=== PATIENT | male | born 1980 | race African-American/Black ===

== ENCOUNTER 2017-04-07 17:54 | Emergency (ER) | payer MEDICAID, OTHER ==
[~2017-04-07] VITALS: Ht 180.3 cm; Wt 81.8 kg
[2017-04-07 17:55] VITALS: BP 99/78
[2017-04-07] MEDS ORDERED: PRED10TA2 PO (18:45)
[2017-04-07] MEDS ORDERED: predniSONE 20 MG TAB PO ONE (18:45)
[2017-04-07] MEDS ORDERED: ONDANSETRON 4 MG ORAL DISINTEGRATING TAB (S0181) PO ONE (18:45)
[2017-04-07] MEDS ORDERED: ZOFR4TAB3 PO (18:45)
== END 2017-04-07 18:52 | disposition home or self-care (01) ==
LOC: M ED 17:54
DX: R10.84 Generalized abdominal pain (principal); R11.0 Nausea; R19.7 Diarrhea, unspecified; E86.0 Dehydration; K50.00 Crohn's disease of small intestine without complications

== ENCOUNTER → 2017-04-25 | Outpatient (REF) | payer OTHER ==
[~2017-04-25] MED LIST: PRED10TA2 PO; ZOFR4TAB3 PO
[2017-04-25 13:36] LABS: BASO % 0.6 % (0.0-1.0); EOS # 0.2 K/mm3 (0.0-0.50); EOS % 3.6 % (0.0-3.0); LARGE UNSTAINED CELL # 0.1 K/mm3 (0.0-0.4); LARGE UNSTAINED CELL % 2.3 % (0.0-4.0); LYMPH # 0.8 K/mm3 (1.5-4.5); MEAN CORPUSCULAR HEMOGLOBIN 31.4 pg (27.0-33.0); MEAN CORPUSCULAR HGB CONC 35.1 g/dl (32.0-36.5); MEAN CORPUSCULAR VOLUME 89.4 fl (80.0-96.0); MONO # 0.4 K/mm3 (0.0-0.8); MONO % 7.5 % (0.0-5.0); NEUTROPHILS # 4.2 K/mm3 (1.8-7.7); PLATELET COUNT, AUTOMATED 228 k/mm3 (150-450); RED CELL DISTRIBUTION WIDTH 12.8 % (11.5-14.5); WHITE BLOOD COUNT 5.6 K/mm3 (4.0-10.0)
[2017-04-25 14:17] LABS: ALBUMIN 3.7 GM/DL (3.2-5.2); ALKALINE PHOSPHATASE 77 U/L (45-117); ALT/SGPT 20 U/L (12-78); ANION GAP 9 MEQ/L (8-16); AST/SGOT 15 U/L (15-37); BILIRUBIN,TOTAL 1.8 MG/DL (0.2-1.0); BLOOD UREA NITROGEN 20 MG/DL (7-18); CALCIUM LEVEL 9.3 MG/DL (8.5-10.1); CARBON DIOXIDE LEVEL 25 MEQ/L (21-32); CHLORIDE LEVEL 108 MEQ/L (98-107); CREATININE FOR GFR 1.22 MG/DL (0.70-1.30); GLOMERULAR FILTRATION RATE > 60.0 (>60); GLUCOSE, FASTING 74 MG/DL (70-105); POTASSIUM SERUM 3.8 MEQ/L (3.5-5.1); SODIUM LEVEL 142 MEQ/L (136-145); TOTAL PROTEIN 7.4 GM/DL (6.4-8.2)
== END ==
LOC: M SFHCPLAZ 11:01
PROVIDERS: ATTEND Nurse Practitioner Family
DX: K50.90 Crohn's disease, unspecified, without complications (principal)

== ENCOUNTER 2017-12-23 02:05 | Emergency (ER) | payer OTHER ==
[2017-12-23 03:00] LABS: BASO % 0.4 % (0.0-1.0); EOS # 0.1 10^3/uL (0.0-0.50); EOS % 2.9 % (0.0-3.0); HEMATOCRIT 39.9 % (42.0-52.0); HEMOGLOBIN 13.9 g/dl (13.5-17.5); IMMATURE GRANULOCYTE % 0.2 % (0-3.0); LYMPH # 0.5 10^3/uL (1.5-4.5); LYMPH % 11.4 % (24.0-44.0); MEAN CORPUSCULAR HEMOGLOBIN 31.2 pg (27.0-33.0); MEAN CORPUSCULAR HGB CONC 34.8 g/dl (32.0-36.5); MEAN CORPUSCULAR VOLUME 89.5 fl (80.0-96.0); MONO # 0.5 10^3/uL (0.0-0.8); MONO % 11.7 % (0.0-5.0); NEUTROPHILS # 3.3 10^3/uL (1.8-7.7); NEUTROPHILS % 73.4 % (36.0-66.0); PLATELET COUNT, AUTOMATED 247 10^3/uL (150-450); RED BLOOD COUNT 4.46 10^6/uL (4.30-6.10); RED CELL DISTRIBUTION WIDTH 12.6 % (11.5-14.5); WHITE BLOOD COUNT 4.5 10^3/uL (4.0-10.0)
[2017-12-23] MEDS: NS 1,000 ML IV (03:03)
[2017-12-23] MEDS: ONDANSETRON 4MG/2ML VIAL (J2405) IV (03:03)
[2017-12-23] MEDS: methylPREDNISolone INJ 125 MG/2 ML VIAL (J2930) IV (03:04)
[2017-12-23] MEDS: MORPHINE 4 MG/ML 1ML VIAL/SYRINGE (J2270) IV (03:04)
[2017-12-23 03:31] LABS: ALBUMIN 3.5 GM/DL (3.2-5.2); ALBUMIN/GLOBULIN RATIO 0.95 (1.00-1.93); ALKALINE PHOSPHATASE 94 U/L (45-117); ALT/SGPT 23 U/L (12-78); ANION GAP 6 MEQ/L (8-16); AST/SGOT 18 U/L (7-37); BILIRUBIN,DIRECT 0.3 MG/DL (0.0-0.2); BLOOD UREA NITROGEN 21 MG/DL (7-18); CALCIUM LEVEL 8.4 MG/DL (8.5-10.1); CARBON DIOXIDE LEVEL 27 MEQ/L (21-32); CHLORIDE LEVEL 108 MEQ/L (98-107); CREATININE FOR GFR 1.07 MG/DL (0.70-1.30); GLOMERULAR FILTRATION RATE > 60.0 (>60); GLUCOSE, FASTING 94 MG/DL (70-100); LIPASE 161 U/L (73-393); POTASSIUM SERUM 3.7 MEQ/L (3.5-5.1); SODIUM LEVEL 141 MEQ/L (136-145); TOTAL PROTEIN 7.2 GM/DL (6.4-8.2)
== END 2017-12-23 04:06 | disposition home or self-care (01) ==
LOC: M ED 02:05
DX: K50.00 Crohn's disease of small intestine without complications (principal)
CPT/HCPCS: J2270

== ENCOUNTER 2018-06-11 21:12 | Emergency (ER) | payer OTHER ==
[2018-06-11 22:37] LABS: INFLUENZA A AMPLIFICATION NEGATIVE (NEGATIVE); INFLUENZA B AMPLIFICATION NEGATIVE (NEGATIVE)
[2018-06-11] MEDS: ACETAMINOPHEN 325 MG TAB PO (22:46)
[2018-06-11] MEDS: IBUPROFEN 800 MG TAB PO (22:46)
== END 2018-06-12 00:05 | disposition home or self-care (01) ==
LOC: M ED 06-12 00:05
DX: J06.9 Acute upper respiratory infection, unspecified (principal); K50.90 Crohn's disease, unspecified, without complications; Z79.899 Other long term (current) drug therapy
CPT/HCPCS: 71046

== ENCOUNTER → 2018-07-09 | Outpatient (CLI) | payer OTHER ==
[2018-07-09 17:24] LABS: ALBUMIN 4.2 GM/DL (3.2-5.2); ALBUMIN/GLOBULIN RATIO 1.05 (1.00-1.93); ALKALINE PHOSPHATASE 104 U/L (45-117); ALT/SGPT 27 U/L (12-78); ANION GAP 9 MEQ/L (8-16); AST/SGOT 25 U/L (7-37); BILIRUBIN,TOTAL 2.1 MG/DL (0.2-1.0); BLOOD UREA NITROGEN 24 MG/DL (7-18); CALCIUM LEVEL 9.3 MG/DL (8.5-10.1); CARBON DIOXIDE LEVEL 27 MEQ/L (21-32); CHLORIDE LEVEL 101 MEQ/L (98-107); CREATININE FOR GFR 1.09 MG/DL (0.70-1.30); FREE T4 1.26 NG/DL (0.76-1.46); GLOMERULAR FILTRATION RATE > 60.0 (>60); GLUCOSE, FASTING 78 MG/DL (70-100); POTASSIUM SERUM 4.2 MEQ/L (3.5-5.1); SODIUM LEVEL 137 MEQ/L (136-145); THYROID STIMULATING HORMONE 0.817 uIU/ML (0.358-3.740); TOTAL PROTEIN 8.2 GM/DL (6.4-8.2)
[2018-07-09 17:44] LABS: BASO % 0.4 % (0.0-1.0); EOS # 0.2 10^3/uL (0.0-0.50); EOS % 3.2 % (0.0-3.0); HEMATOCRIT 47.8 % (42.0-52.0); HEMOGLOBIN 16.5 g/dl (13.5-17.5); IMMATURE GRANULOCYTE % 0.6 % (0-3.0); LYMPH # 0.7 10^3/uL (1.5-4.5); LYMPH % 14.6 % (24.0-44.0); MEAN CORPUSCULAR HEMOGLOBIN 31.1 pg (27.0-33.0); MEAN CORPUSCULAR HGB CONC 34.5 g/dl (32.0-36.5); MONO # 0.6 10^3/uL (0.0-0.8); MONO % 12.7 % (0.0-5.0); NEUTROPHILS # 3.2 10^3/uL (1.8-7.7); NEUTROPHILS % 68.5 % (36.0-66.0); PLATELET COUNT, AUTOMATED 245 10^3/uL (150-450); RED BLOOD COUNT 5.31 10^6/uL (4.30-6.10); RED CELL DISTRIBUTION WIDTH 13.1 % (11.5-14.5); WHITE BLOOD COUNT 4.7 10^3/uL (4.0-10.0)
== END ==
LOC: M WUC 13:11
DX: A09 Infectious gastroenteritis and colitis, unspecified (principal)
CPT/HCPCS: 84443

== ENCOUNTER 2019-03-23 21:58 | Emergency (ER) | payer OTHER ==
[~2019-03-23] VITALS: Ht 180.3 cm; Wt 82.7 kg
[~2019-03-23 21:58] MED LIST changes: +MERC50TA2 PO; +PRED20TA PO; +ZOFR4TAB14 PO; -ZOFR4TAB3 PO
[2019-03-23 22:59] LABS: BASO % 0.5 % (0.0-1.0); EOS # 0.4 10^3/uL (0.0-0.50); EOS % 6.4 % (0.0-3.0); HEMATOCRIT 40.5 % (42.0-52.0); LYMPH # 0.8 10^3/uL (1.5-4.5); LYMPH % 13.1 % (24.0-44.0); MEAN CORPUSCULAR HEMOGLOBIN 30.8 pg (27.0-33.0); MEAN CORPUSCULAR HGB CONC 34.6 g/dl (32.0-36.5); MONO # 0.7 10^3/uL (0.0-0.8); MONO % 10.7 % (0.0-5.0); NEUTROPHILS # 4.3 10^3/uL (1.8-7.7); PLATELET COUNT, AUTOMATED 292 10^3/uL (150-450); RED BLOOD COUNT 4.55 10^6/uL (4.30-6.10); WHITE BLOOD COUNT 6.3 10^3/uL (4.0-10.0)
[2019-03-23 23:43] LABS: ALBUMIN 3.8 GM/DL (3.2-5.2); ALT/SGPT 19 U/L (12-78); BILIRUBIN,DIRECT 0.3 MG/DL (0.0-0.2); BILIRUBIN,TOTAL 1.3 MG/DL (0.2-1.0); BLOOD UREA NITROGEN 24 MG/DL (7-18); CALCIUM LEVEL 9.6 MG/DL (8.5-10.1); CARBON DIOXIDE LEVEL 26 MEQ/L (21-32); CHLORIDE LEVEL 108 MEQ/L (98-107); GLOMERULAR FILTRATION RATE > 60.0 (>60); GLUCOSE, FASTING 86 MG/DL (70-100); LIPASE 141 U/L (73-393); POTASSIUM SERUM 3.9 MEQ/L (3.5-5.1); SODIUM LEVEL 142 MEQ/L (136-145); TOTAL PROTEIN 7.1 GM/DL (6.4-8.2)
[2019-03-24] MEDS ORDERED: NS 1,000 ML IV ONE (00:45)
[2019-03-24] MEDS ORDERED: ONDANSETRON 4MG/2ML VIAL (J2405) IV ONE (00:45)
[2019-03-24] MEDS ORDERED: KETOROLAC 30 MG/ML VIAL (J1885) IV ONE (00:45)
[2019-03-24] MEDS ORDERED: ISOVUE-370 76% 100ML VIAL (Q9967) As Ordered ONE (00:45)
[2019-03-24 01:21] LABS: C REACTIVE PROTEIN QUANTITATIV 2.77 MG/DL (0.00-0.30); ERYTHROCYTE SEDIMENTATION RATE 30 mm/hr (0-15)
[2019-03-24] MEDS ORDERED: methylPREDNISolone INJ 125 MG/2 ML VIAL (J2930) IV ONE (01:45)
--- NOTE | 2019-03-24 03:07 | REPVR ---
EXAM: CT Abdomen and Pelvis With Contrast EXAM DATE/TIME: 03/24/2019 1:38 AM CLINICAL HISTORY: 39 years old, male; Pain and condition or disease; Intestinal condition; Crohn's disease; Abdominal pain; Localized; Lower; Additional info: Lower abd pain/hx crohns TECHNIQUE: Imaging protocol: Axial computed tomography images of the abdomen and pelvis with intravenous contrast. Coronal and sagittal reformatted images were created and reviewed. Radiation optimization: All CT scans at this facility use at least one of these dose optimization techniques: automated exposure control; mA and/or kV adjustment per patient size (includes targeted exams where dose is matched to clinical indication); or iterative reconstruction. Contrast material: ISOVUE 370;Contrast volume: 100 ml;Contrast route: IV; COMPARISON: No relevant prior studies available. FINDINGS: Liver: Normal. No mass. Gallbladder and bile ducts: No calcified stones. No ductal dilation. Pancreas: Normal. No ductal dilation. Spleen: Normal. No splenomegaly. Adrenals: Normal. No mass. Kidneys and ureters: Sub-5 mm hypodensities in each kidney, too small to accurately characterize. No hydronephrosis. Stomach and bowel: Thickening of the machado of the distal ileum, the cecum, and the proximal to mid ascending colon, with mild adjacent fat stranding and hyperemic mesentery. No obstruction. No pneumatosis. Appendix: No evidence of appendicitis. Intraperitoneal space: Trace free fluid in the pelvis. No pneumoperitoneum. Vasculature: No abdominal aortic aneurysm. Lymph nodes: No enlarged lymph nodes. Bladder: Unremarkable. Reproductive: Unremarkable. Bones/joints: No acute fracture. No dislocation. Soft tissues: Unremarkable. IMPRESSION: 1. Findings consistent with ileocolitis, with pattern characteristic of Crohn's disease. 2. Nonacute/incidental findings above. COMMENT: Consistent with the [employer]'s Incidental Findings Committee Report (J Am Ashleigh Radiol 2010): Unless the patient's specific circumstances suggest otherwise, any liver lesion 0.5 cm or less, any cystic kidney lesion less than 1.0 cm, and/or any adrenal lesion 1.0 cm or less not otherwise characterized in this report as possessing suspicious or indeterminate imaging features is/are highly likely to be benign and do not require follow-up imaging or biopsy. Electronically signed by: Sánchez Nielson On 03/24/2019 03:07:09 AM
[2019-03-24] MEDS ORDERED: dexameTHASONE 20 MG/5 ML VIAL (J1100) IV ONE (04:00)
[2019-03-24 04:08] VITALS: BP 115/61
[2019-03-24] MEDS ORDERED: ZOFR8TAB24 PO (17:20)
[2019-03-24] MEDS ORDERED: BUDE3CAP PO (17:20)
== END 2019-03-24 04:09 | disposition home or self-care (01) ==
LOC: M ED 21:58
DX: K50.918 Crohn's disease, unspecified, with other complication (principal)
CPT/HCPCS: 74177; 80048; 80076; 83690; 85025; 85652; 86140; 96374; 96375; 99284; J1100; J1885; J2405; J2930; Q9967

== ENCOUNTER 2019-03-24 12:37 | Emergency (ER) | payer OTHER ==
[~2019-03-24] VITALS: Ht 180.3 cm; Wt 82.0 kg
[2019-03-24] MEDS ORDERED: NS 1,000 ML IV ONE (15:45)
[2019-03-24 15:57] LABS: BASO % 0.1 % (0.0-1.0); HEMATOCRIT 44.6 % (42.0-52.0); HEMOGLOBIN 15.5 g/dl (13.5-17.5); LYMPH # 0.3 10^3/uL (1.5-4.5); LYMPH % 3.4 % (24.0-44.0); MEAN CORPUSCULAR HEMOGLOBIN 30.9 pg (27.0-33.0); MEAN CORPUSCULAR HGB CONC 34.8 g/dl (32.0-36.5); MONO # 0.1 10^3/uL (0.0-0.8); MONO % 1.4 % (0.0-5.0); NEUTROPHILS # 9.5 10^3/uL (1.8-7.7); NEUTROPHILS % 94.8 % (36.0-66.0); PLATELET COUNT, AUTOMATED 338 10^3/uL (150-450); RED BLOOD COUNT 5.01 10^6/uL (4.30-6.10); WHITE BLOOD COUNT 10.1 10^3/uL (4.0-10.0)
[2019-03-24 16:34] LABS: ALBUMIN 4.2 GM/DL (3.2-5.2); ALT/SGPT 20 U/L (12-78); BILIRUBIN,DIRECT 0.3 MG/DL (0.0-0.2); BLOOD UREA NITROGEN 27 MG/DL (7-18); CALCIUM LEVEL 9.8 MG/DL (8.5-10.1); CARBON DIOXIDE LEVEL 28 MEQ/L (21-32); CHLORIDE LEVEL 105 MEQ/L (98-107); CREATININE FOR GFR 1.27 MG/DL (0.70-1.30); GLOMERULAR FILTRATION RATE > 60.0 (>60); GLUCOSE, FASTING 107 MG/DL (70-100); LIPASE 141 U/L (73-393); POTASSIUM SERUM 4.1 MEQ/L (3.5-5.1); SODIUM LEVEL 138 MEQ/L (136-145); TOTAL PROTEIN 8.4 GM/DL (6.4-8.2)
[2019-03-24] MEDS ORDERED: ONDANSETRON 4MG/2ML VIAL (J2405) IV ONE (16:45)
[2019-03-24] MEDS ORDERED: ZOFR8TAB24 PO (17:20)
[2019-03-24] MEDS ORDERED: BUDE3CAP PO (17:20)
[2019-03-24 17:36] VITALS: BP 118/65
== END 2019-03-24 17:37 | disposition home or self-care (01) ==
LOC: M ED 12:37
DX: K50.90 Crohn's disease, unspecified, without complications (principal)
CPT/HCPCS: 80048; 80076; 81001; 83690; 85025; 96361; 96374; 99284; J2405

== ENCOUNTER 2019-09-10 17:24 | Emergency (ER) | payer OTHER ==
[~2019-09-10] VITALS: Ht 180.3 cm; Wt 88.2 kg
[~2019-09-10 17:24] MED LIST changes: +BUDE3CAP PO; +ZOFR8TAB24 PO
[2019-09-10 18:46] LABS: BASO % 0.6 % (0.0-1.0); EOS # 0.2 10^3/uL (0.0-0.5); EOS % 3.4 % (0.0-3.0); HEMATOCRIT 47.3 % (42.0-52.0); HEMOGLOBIN 15.5 g/dl (13.5-17.5); LYMPH # 0.6 10^3/uL (1.5-5.0); LYMPH % 13.3 % (24.0-44.0); MEAN CORPUSCULAR HEMOGLOBIN 30.3 pg (27.0-33.0); MEAN CORPUSCULAR HGB CONC 32.8 g/dl (32.0-36.5); MEAN CORPUSCULAR VOLUME 92.6 fl (80.0-96.0); MONO # 0.5 10^3/uL (0.0-0.8); MONO % 10.8 % (0.0-5.0); NEUTROPHILS # 3.4 10^3/uL (1.5-8.5); NEUTROPHILS % 71.5 % (36.0-66.0); PLATELET COUNT, AUTOMATED 217 10^3/uL (150-450); RED BLOOD COUNT 5.11 10^6/uL (4.30-6.10); WHITE BLOOD COUNT 4.7 10^3/uL (4.0-10.0)
[2019-09-10 19:17] LABS: ALBUMIN 3.8 GM/DL (3.2-5.2); ALT/SGPT 23 U/L (12-78); BILIRUBIN,DIRECT 0.2 MG/DL (0.0-0.2); BILIRUBIN,TOTAL 1.5 MG/DL (0.2-1.0); BLOOD UREA NITROGEN 20 MG/DL (7-18); C REACTIVE PROTEIN QUANTITATIV 3.76 MG/DL (0.00-0.30); CALCIUM LEVEL 9.4 MG/DL (8.5-10.1); CARBON DIOXIDE LEVEL 28 MEQ/L (21-32); CHLORIDE LEVEL 105 MEQ/L (98-107); CREATININE FOR GFR 1.08 MG/DL (0.70-1.30); GLOMERULAR FILTRATION RATE > 60.0 (>60); GLUCOSE, FASTING 73 MG/DL (70-100); LIPASE 135 U/L (73-393); POTASSIUM SERUM 3.9 MEQ/L (3.5-5.1); SODIUM LEVEL 137 MEQ/L (136-145); TOTAL PROTEIN 8.2 GM/DL (6.4-8.2)
[2019-09-10 19:24] LABS: ERYTHROCYTE SEDIMENTATION RATE 29 mm/hr (0-15)
[2019-09-10] MEDS ORDERED: methylPREDNISolone INJ 125 MG/2 ML VIAL (J2930) IV ONE (21:00)
[2019-09-10] MEDS ORDERED: ONDANSETRON 4MG/2ML VIAL (J2405) IV ONE (21:00)
[2019-09-10] MEDS ORDERED: NS 1,000 ML IV ONE (21:00)
[2019-09-10] MEDS ORDERED: ISOVUE-370 76% 100ML VIAL (Q9967) As Ordered ONE (22:35)
--- NOTE | 2019-09-10 23:45 | REPVR ---
PROCEDURE INFORMATION: Exam: CT Abdomen And Pelvis With Contrast Exam date and time: 09/10/2019 10:50 PM Age: 39 years old Clinical indication: Abdominal pain; Additional info: Luq/llq and rlq pain, HX of crohn's, n/v/d x 2 days TECHNIQUE: Imaging protocol: Computed tomography of the abdomen and pelvis with intravenous contrast. Radiation optimization: All CT scans at this facility use at least one of these dose optimization techniques: automated exposure control; mA and/or kV adjustment per patient size (includes targeted exams where dose is matched to clinical indication); or iterative reconstruction. Contrast material: ISOVUE 370; Contrast volume: 100 ml; Contrast route: IV; COMPARISON: CT ABD/PEL W/IV CONTRAST ONLY 03/24/2019 1:37 AM FINDINGS: Liver: Normal. No mass. Gallbladder and bile ducts: Normal. No calcified stones. No ductal dilation. Pancreas: Normal. No ductal dilation. Spleen: Normal. No splenomegaly. Adrenals: Normal. No mass. Kidneys and ureters: Normal. No hydronephrosis. Stomach and bowel: . Moderate to severe thickening of the distal small bowel, terminal ileum and mild thickening of the cecum with surrounding inflammatory changes and mucosal enhancement. Additionally there is thickening of the rectum and sigmoid colon. No obstruction. Appendix: Normal appendix. Intraperitoneal space: Unremarkable. No free air. No significant fluid collection. Vasculature: Unremarkable. No abdominal aortic aneurysm. Lymph nodes: Unremarkable. No enlarged lymph nodes. Bladder: Unremarkable as visualized. Reproductive: Unremarkable as visualized. Bones/joints: Unremarkable. No acute fracture. Soft tissues: Unremarkable. IMPRESSION: Moderate to severe thickening of the distal small bowel, terminal ileum and mild thickening of the cecum with surrounding inflammatory changes and mucosal enhancement.. Additionally there is thickening of the rectum and sigmoid colon. No obstruction. Findings the present ileal colitis/Crohn's disease. Electronically signed by: Latricia Nguyen On 09/10/2019 23:45:17 PM
[2019-09-10] MEDS ORDERED: PRED10TA2 PO (23:56)
[2019-09-10] MEDS ORDERED: MERC50TA2 PO (23:56)
[2019-09-10 23:59] VITALS: BP 117/76
--- NOTE | 2019-09-11 11:51 | ED PDOC ---
Post-Departure Follow-Up dr blandon faxed formal report of ct abd/p for fu Evie Hernández MD Sep 11, 2019 11:51
== END 2019-09-11 00:20 | disposition home or self-care (01) ==
LOC: M ED 17:24
DX: K50.00 Crohn's disease of small intestine without complications (principal); R11.2 Nausea with vomiting, unspecified; K63.89 Other specified diseases of intestine; K62.89 Other specified diseases of anus and rectum
CPT/HCPCS: 74177; 80048; 80076; 81001; 83690; 85025; 85652; 86140; 96361; 96374; 96375; 99284; J2405; J2930; Q9967

== ENCOUNTER 2019-10-14 10:20 | Emergency (ER) | payer OTHER ==
[~2019-10-14] VITALS: Ht 180.3 cm; Wt 89.7 kg
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
[2019-10-14] MEDS ORDERED: CYCL10TA PO (11:56)
[2019-10-14 12:03] VITALS: BP 115/79
== END 2019-10-14 12:05 | disposition home or self-care (01) ==
LOC: M ED 10:20
DX: Z04.1 Encounter for examination and observation following transport accident (principal); M54.6 Pain in thoracic spine; M25.511 Pain in right shoulder; M25.512 Pain in left shoulder; M79.604 Pain in right leg; M79.605 Pain in left leg; K50.919 Crohn's disease, unspecified, with unspecified complications

== ENCOUNTER 2020-01-20 16:52 | Emergency (ER) | payer OTHER ==
[~2020-01-20] VITALS: Ht 180.3 cm; Wt 84.4 kg
[~2020-01-20 16:52] MED LIST changes: +CYCL-707 PO
[2020-01-20] MEDS ORDERED: MORPHINE 4 MG/ML 1ML VIAL/SYRINGE (J2270) IV ONE (18:45)
[2020-01-20] MEDS ORDERED: ONDANSETRON 4MG/2ML VIAL IV ONE (18:45)
[2020-01-20] MEDS ORDERED: NS 1,000 ML IV ONE (18:45)
[2020-01-20 18:50] LABS: ALBUMIN 3.8 GM/DL (3.2-5.2); ALT/SGPT 18 U/L (12-78); BASO % 0.5 % (0.0-1.0); BILIRUBIN,DIRECT 0.4 MG/DL (0.0-0.2); BILIRUBIN,TOTAL 2.2 MG/DL (0.2-1.0); BLOOD UREA NITROGEN 18 MG/DL (7-18); CALCIUM LEVEL 8.9 MG/DL (8.5-10.1); CARBON DIOXIDE LEVEL 29 MEQ/L (21-32); CHLORIDE LEVEL 104 MEQ/L (98-107); CREATININE FOR GFR 1.09 MG/DL (0.70-1.30); EOS # 0.3 10^3/uL (0.0-0.5); GLOMERULAR FILTRATION RATE > 60.0 (>60); GLUCOSE, FASTING 82 MG/DL (70-100); HEMATOCRIT 36.7 % (42.0-52.0); HEMOGLOBIN 12.8 g/dl (13.5-17.5); LIPASE 79 U/L (73-393); LYMPH # 0.4 10^3/uL (1.5-5.0); LYMPH % 10.1 % (24.0-44.0); MEAN CORPUSCULAR HEMOGLOBIN 31.8 pg (27.0-33.0); MEAN CORPUSCULAR HGB CONC 34.9 g/dl (32.0-36.5); MEAN CORPUSCULAR VOLUME 91.1 fl (80.0-96.0); MONO # 0.5 10^3/uL (0.0-0.8); MONO % 11.7 % (0.0-5.0); NEUTROPHILS # 2.7 10^3/uL (1.5-8.5); NEUTROPHILS % 69.9 % (36.0-66.0); PLATELET COUNT, AUTOMATED 267 10^3/uL (150-450); POTASSIUM SERUM 3.9 MEQ/L (3.5-5.1); RED BLOOD COUNT 4.03 10^6/uL (4.30-6.10); SODIUM LEVEL 139 MEQ/L (136-145); TOTAL PROTEIN 7.2 GM/DL (6.4-8.2); WHITE BLOOD COUNT 3.9 10^3/uL (4.0-10.0)
[2020-01-20] MEDS ORDERED: ISOVUE-370 76% 100ML VIAL As Ordered ONE (19:17)
[2020-01-20] MEDS: GASTROGRAFIN SOLUTION 30ML PO SCH (21:03)
--- NOTE | 2020-01-20 23:02 | REPVR ---
PROCEDURE INFORMATION: Exam: CT Abdomen And Pelvis Without Contrast Exam date and time: 01/20/2020 10:40 PM Age: 39 years old Clinical indication: Abdominal pain; Additional info: Abd pain with n/v/d HX of crohns TECHNIQUE: Imaging protocol: Computed tomography of the abdomen and pelvis without contrast. Axial, coronal and sagittal reformatted images were created and reviewed. Radiation optimization: All CT scans at this facility use at least one of these dose optimization techniques: automated exposure control; mA and/or kV adjustment per patient size (includes targeted exams where dose is matched to clinical indication); or iterative reconstruction. COMPARISON: CT ABD/PEL W/IV CONTRAST ONLY 09/10/2019 10:37 PM FINDINGS: Lungs: Minimal dependent atelectatic change at the left greater than right lung bases. Liver: Unremarkable. Gallbladder and bile ducts: No radiodense gallstones. No biliary ductal dilatation. Pancreas: Unremarkable. Spleen: Unremarkable. Adrenals: Unremarkable. Kidneys and ureters: No mass. No radiodense calculi. No hydronephrosis. Stomach and bowel: Moderately long segment of distal/terminal ileal wall thickening with associated mural and mesenteric edema, similar to prior. No obstruction. No pneumatosis. Appendix: Intraluminal appendicular is without evidence of acute appendicitis. Intraperitoneal space: No free fluid. No organized fluid collection. No free air. Vasculature: Unremarkable. No aneurysm. Lymph nodes: No pathologically enlarged lymph nodes. Bladder: Unremarkable. Reproductive: Unremarkable. Bones/joints: No acute osseous abnormality. Soft tissues: Tiny, fat containing umbilical hernia. IMPRESSION: 1. Distal/terminal ileitis, likely secondary to Crohn's exacerbation. 2. Additional findings, as above. Electronically signed by: Km Nam On 01/20/2020 23:02:44 PM
[2020-01-20] MEDS ORDERED: MEDR4PAK PO (23:15)
[2020-01-20 23:28] VITALS: BP 124/82
[2020-01-20] MEDS ORDERED: methylPREDNISolone INJ 125 MG/2 ML VIAL (J2930) IV ONE (23:30)
== END 2020-01-20 23:33 | disposition home or self-care (01) ==
LOC: M ED 16:52
DX: K50.90 Crohn's disease, unspecified, without complications (principal); R71.0 Precipitous drop in hematocrit; Z79.899 Other long term (current) drug therapy
CPT/HCPCS: 74176; 80048; 80076; 81001; 83690; 85025; 96361; 96374; 96375; 99284; J2270; J2405; J2930; Q9963

== ENCOUNTER → 2020-05-11 | Outpatient (CLI) | payer OTHER ==
[~2020-05-11] MED LIST changes: +MEDR4PAK PO
[2020-05-11 11:21] LABS: BASO % 0.7 % (0.0-1.0); EOS # 0.1 10^3/uL (0.0-0.5); HEMATOCRIT 40.2 % (42.0-52.0); HEMOGLOBIN 13.7 g/dl (13.5-17.5); LYMPH # 0.5 10^3/uL (1.5-5.0); LYMPH % 15.4 % (24.0-44.0); MEAN CORPUSCULAR HEMOGLOBIN 32.5 pg (27.0-33.0); MEAN CORPUSCULAR HGB CONC 34.1 g/dl (32.0-36.5); MEAN CORPUSCULAR VOLUME 95.3 fl (80.0-96.0); MONO # 0.4 10^3/uL (0.0-0.8); MONO % 12.4 % (0.0-5.0); NEUTROPHILS % 66.8 % (36.0-66.0); PLATELET COUNT, AUTOMATED 240 10^3/uL (150-450); RED BLOOD COUNT 4.22 10^6/uL (4.30-6.10)
[2020-05-11 12:06] LABS: ALBUMIN 3.7 GM/DL (3.2-5.2); ALT/SGPT 18 U/L (12-78); BLOOD UREA NITROGEN 20 MG/DL (7-18); CALCIUM LEVEL 9.2 MG/DL (8.5-10.1); CARBON DIOXIDE LEVEL 31 MEQ/L (21-32); CHLORIDE LEVEL 106 MEQ/L (98-107); CREATININE FOR GFR 1.03 MG/DL (0.70-1.30); GLOMERULAR FILTRATION RATE > 60.0 (>60); GLUCOSE, FASTING 70 MG/DL (70-100); POTASSIUM SERUM 3.8 MEQ/L (3.5-5.1); SODIUM LEVEL 141 MEQ/L (136-145); TOTAL PROTEIN 7.2 GM/DL (6.4-8.2)
[2020-05-11 13:37] LABS: VITAMIN B12 LEVEL 238 PG/ML (247-911)
== END ==
LOC: M LAB 10:05
PROVIDERS: ATTEND Internal Medicine Gastroenterology
DX: K50.018 Crohn's disease of small intestine with other complication (principal)

== ENCOUNTER → 2020-05-12 | Outpatient (CLI) | payer OTHER | LOC: M LABSMTC 12:10 | PROVIDERS: ATTEND Anesthesiology | DX: Z01.812 Encounter for preprocedural laboratory examination (principal); Z20.828 Contact with and (suspected) exposure to other viral communicable diseases | CPT/HCPCS: C9803; U0003 ==

== ENCOUNTER 2020-05-17 08:39 | Day surgery (SDC) | payer OTHER ==
[~2020-05-17] VITALS: Ht 180.3 cm; Wt 81.8 kg
[~2020-05-17 08:39] MED LIST changes: +LIDOCAINE 2% 100MG/5ML SDV (FOR ANES.) As Ordered ONE; +NS 1,000 ML IV ONE; +propofoL 200 MG/20 ML VIAL As Ordered ONE
[2020-05-17 09:46] VITALS: BP 110/69
--- NOTE | 2020-05-17 09:48 | ROOR ---
Patient Name: Quan Dubon Procedure Date: 05/17/2020 9:16 AM Date of : 1980 Age: 40 Room: [facility] Gender: Male Note Status: Finalized Procedure: Colonoscopy Indications: Follow-up of Crohn's disease Providers: Jorge CHANEY MD Referring MD: Fatou Castanon Requesting Provider: Medicines: Monitored Anesthesia Care Complications: No immediate complications. Procedure: Pre-Anesthesia Assessment: - The heart rate, respiratory rate, oxygen saturations, blood pressure, adequacy of pulmonary ventilation, and response to care were monitored throughout the procedure. The Colonoscope was introduced through the anus and advanced to the terminal ileum, with identification of the appendiceal orifice and IC valve. The colonoscopy was performed without difficulty. The patient tolerated the procedure well. The quality of the bowel preparation was good. Findings: The perianal and digital rectal examinations were normal. A benign-appearing, intrinsic moderate stenosis was found at the ileocecal valve and was non-traversed. Biopsies were taken with a cold forceps for histology. Inflammation characterized by friability, scarring and confluent ulcerations was found at the ileocecal valve and terminal ileum. Biopsies were taken with a cold forceps for histology. The exam was otherwise normal throughout the examined colon. Impression: - Crohn's disease with ileitis. Fibrostenotic ileocecal valve and Inflammation was found. I was unable to pass scope fully into the terminal ileum due to stenosis. Biopsied. - The perianal exam, the colon and and retroflexed view in rectum are normal. Recommendation: - Use Entyvio (vedolizumab) intravenous infusion: 300 mg IV once per week at week 0, week 2, and week 6. - To discuss todays findings, my office will call you in the next few days to schedule a follow up appointment. - Your B12 level is marginal. I recommend you start a B12 supplement. Script sent to your pharmacy. Jorge Chaney MD Jorge CHANEY MD 05/17/2020 9:47:17 AM Electronically signed by Jorge CHANEY MD Number of Addenda: 0 Note Initiated On: 05/17/2020 9:16 AM Estimated Blood Loss: Estimated blood loss: none.
== END 2020-05-17 09:47 | disposition home or self-care (01) ==
LOC: M OPP 08:39
PROVIDERS: ATTEND Internal Medicine Gastroenterology
DX: K63.89 Other specified diseases of intestine (principal); K50.012 Crohn's disease of small intestine with intestinal obstruction; Z79.899 Other long term (current) drug therapy

== ENCOUNTER 2020-05-27 15:45 | Outpatient (CLI) | payer OTHER ==
[~2020-05-27] VITALS: Ht 180.3 cm; Wt 80.2 kg
[~2020-05-27 15:45] MED LIST changes: -LIDOCAINE 2% 100MG/5ML SDV (FOR ANES.) As Ordered ONE; -NS 1,000 ML IV ONE; +VEDOLIZUMAB 300 MG in NS 250 ML IV ONE; -propofoL 200 MG/20 ML VIAL As Ordered ONE
[2020-05-27 16:00] VITALS: BP 124/73
[2020-05-27 16:30] VITALS: BP 111/76
[2020-05-27 17:22] VITALS: BP 100/62
[2020-05-27 17:43] VITALS: BP 108/62
== END 2020-05-27 17:45 | disposition home or self-care (01) ==
LOC: M INFU 15:45
PROVIDERS: ATTEND Internal Medicine Gastroenterology
DX: K50.90 Crohn's disease, unspecified, without complications (principal)
CPT/HCPCS: 96365; J3380

== ENCOUNTER 2020-06-10 16:01 | Outpatient (CLI) | payer OTHER ==
[~2020-06-10] VITALS: Ht 180.3 cm; Wt 80.2 kg
[2020-06-10 16:17] VITALS: BP 122/78
[2020-06-10 16:29] VITALS: BP 122/78
[2020-06-10 17:15] VITALS: BP 118/74
== END 2020-06-10 17:15 | disposition home or self-care (01) ==
LOC: M INFU 16:01
PROVIDERS: ATTEND Internal Medicine Gastroenterology
DX: K50.90 Crohn's disease, unspecified, without complications (principal)
CPT/HCPCS: 96365; J3380

== ENCOUNTER 2020-07-08 16:07 | Outpatient (CLI) | payer OTHER ==
[~2020-07-08] VITALS: Ht 182.9 cm; Wt 80.2 kg
[2020-07-08 16:21] VITALS: BP 157/74
[2020-07-08 16:27] VITALS: BP 157/74
[2020-07-08 17:19] VITALS: BP 122/82
== END 2020-07-08 17:20 | disposition home or self-care (01) ==
LOC: M INFU 16:07
PROVIDERS: ATTEND Internal Medicine Gastroenterology
DX: K50.90 Crohn's disease, unspecified, without complications (principal)
CPT/HCPCS: 96365; J3380

== ENCOUNTER 2020-09-02 16:45 | Outpatient (CLI) | payer OTHER ==
[~2020-09-02] VITALS: Ht 180.3 cm; Wt 80.2 kg
[~2020-09-02 16:45] MED LIST changes: -VEDOLIZUMAB 300 MG in NS 250 ML IV ONE
[2020-09-02 17:00] VITALS: BP 144/83
[2020-09-02] MEDS ORDERED: VEDOLIZUMAB 300 MG in NS 250 ML IV ONE (17:00)
[2020-09-02 18:09] VITALS: BP 131/75
== END 2020-09-02 18:10 | disposition home or self-care (01) ==
LOC: M INFU 16:45
PROVIDERS: ATTEND Internal Medicine Gastroenterology
DX: K50.90 Crohn's disease, unspecified, without complications (principal)
CPT/HCPCS: 96365; J3380

== ENCOUNTER 2020-10-28 17:09 | Outpatient (CLI) | payer OTHER ==
[~2020-10-28] VITALS: Ht 182.9 cm; Wt 80.2 kg
[~2020-10-28 17:09] MED LIST changes: +VEDOLIZUMAB 300 MG in NS 250 ML IV ONE
[2020-10-28 17:20] VITALS: BP 114/64
[2020-10-28 17:59] VITALS: BP 118/76
== END 2020-10-28 18:00 | disposition home or self-care (01) ==
LOC: M INFU 17:09
PROVIDERS: ATTEND Internal Medicine Gastroenterology
DX: K50.90 Crohn's disease, unspecified, without complications (principal)
CPT/HCPCS: 96365; J3380

== ENCOUNTER 2020-12-23 17:07 | Outpatient (CLI) | payer OTHER ==
[~2020-12-23] VITALS: Ht 182.9 cm; Wt 80.2 kg
[2020-12-23 17:33] VITALS: BP 118/64
[2020-12-23 17:35] VITALS: BP 118/64
[2020-12-23 18:18] VITALS: BP 114/66
== END 2020-12-23 18:15 | disposition home or self-care (01) ==
LOC: M INFU 17:07
PROVIDERS: ATTEND Internal Medicine Gastroenterology
DX: K50.90 Crohn's disease, unspecified, without complications (principal)
CPT/HCPCS: 96365; J3380

== ENCOUNTER 2021-02-17 17:25 | Outpatient (CLI) | payer OTHER ==
[~2021-02-17] VITALS: Ht 182.9 cm; Wt 97.9 kg
[2021-02-17 17:35] VITALS: BP 136/80
[2021-02-17 18:29] VITALS: BP 142/77
== END 2021-02-17 18:35 | disposition home or self-care (01) ==
LOC: M INFU 17:25
PROVIDERS: ATTEND Internal Medicine Gastroenterology
DX: K50.90 Crohn's disease, unspecified, without complications (principal)
CPT/HCPCS: 96365; J3380

== ENCOUNTER 2021-04-14 17:15 | Outpatient (CLI) | payer OTHER ==
[~2021-04-14] VITALS: Ht 182.9 cm; Wt 97.9 kg
[2021-04-14 17:28] VITALS: BP 170/88
[2021-04-14 18:18] VITALS: BP 148/88
== END 2021-04-14 18:20 | disposition home or self-care (01) ==
LOC: M INFU 17:15
PROVIDERS: ATTEND Internal Medicine Gastroenterology
DX: K50.90 Crohn's disease, unspecified, without complications (principal)
CPT/HCPCS: 96365; J3380

== ENCOUNTER 2021-06-09 17:13 | Outpatient (CLI) | payer OTHER ==
[~2021-06-09] VITALS: Ht 182.9 cm; Wt 97.9 kg
[2021-06-09 17:26] VITALS: BP 137/85
[2021-06-09 18:36] VITALS: BP 126/82
== END 2021-06-09 18:35 | disposition home or self-care (01) ==
LOC: M INFU 17:13
PROVIDERS: ATTEND Internal Medicine Gastroenterology
DX: K50.90 Crohn's disease, unspecified, without complications (principal)
CPT/HCPCS: 96365; J3380

== ENCOUNTER 2021-08-04 17:08 | Outpatient (CLI) | payer OTHER ==
[~2021-08-04] VITALS: Ht 180.3 cm; Wt 98.8 kg
[2021-08-04 17:12] VITALS: BP 130/80
[2021-08-04 18:23] VITALS: BP 137/84
[2021-09-05] MEDS ORDERED: [UNRECOGNIZED DRUG - OTHER] IV (10:15)
== END 2021-08-04 18:30 | disposition home or self-care (01) ==
LOC: M INFU 17:08
PROVIDERS: ATTEND Internal Medicine Gastroenterology
DX: K50.90 Crohn's disease, unspecified, without complications (principal)
CPT/HCPCS: 96365; J3380

== ENCOUNTER 2021-11-24 17:14 | Outpatient (CLI) | payer OTHER ==
[~2021-11-24] VITALS: Ht 180.3 cm; Wt 98.8 kg
[~2021-11-24 17:14] MED LIST changes: +[UNRECOGNIZED DRUG - OTHER] IV
[2021-11-24 17:21] VITALS: BP 120/73
[2021-11-24 18:04] VITALS: BP 132/83
== END 2021-11-24 18:05 | disposition home or self-care (01) ==
LOC: M INFU 17:14
PROVIDERS: ATTEND Internal Medicine Gastroenterology
DX: K50.90 Crohn's disease, unspecified, without complications (principal)
CPT/HCPCS: 96365; J3380

== ENCOUNTER 2022-01-19 17:18 | Outpatient (CLI) | payer OTHER ==
[~2022-01-19] VITALS: Ht 180.3 cm; Wt 98.8 kg
[2022-01-19 17:30] VITALS: BP 135/82
[2022-01-19 18:32] VITALS: BP 137/78
== END 2022-01-19 18:34 | disposition home or self-care (01) ==
LOC: M INFU 17:18
PROVIDERS: ATTEND Internal Medicine Gastroenterology
DX: K50.919 Crohn's disease, unspecified, with unspecified complications (principal)
CPT/HCPCS: 96365; J3380

== ENCOUNTER 2022-03-16 17:10 | Outpatient (CLI) | payer OTHER ==
[~2022-03-16] VITALS: Ht 180.3 cm; Wt 100.9 kg
[2022-03-16 17:10] VITALS: BP 138/85
[2022-03-16 18:25] VITALS: BP 135/86
== END 2022-03-16 18:30 | disposition home or self-care (01) ==
LOC: M INFU 17:10
PROVIDERS: ATTEND Internal Medicine Gastroenterology
DX: K50.919 Crohn's disease, unspecified, with unspecified complications (principal)
CPT/HCPCS: 96365; J3380

== ENCOUNTER 2022-05-11 16:55 | Outpatient (CLI) | payer OTHER ==
[~2022-05-11] VITALS: Ht 180.3 cm; Wt 93.4 kg
[2022-05-11] MEDS ORDERED: VEDOLIZUMAB 300 MG in NS 250 ML IV ONE (17:00)
[2022-05-11 17:01] VITALS: BP 135/85
[2022-05-11 17:48] VITALS: BP 137/88
== END 2022-05-11 17:50 | disposition home or self-care (01) ==
LOC: M INFU 16:55
PROVIDERS: ATTEND Internal Medicine Gastroenterology
DX: K50.90 Crohn's disease, unspecified, without complications (principal)
CPT/HCPCS: 96365; J3380

== ENCOUNTER → 2022-05-11 | Outpatient (CLI) | payer OTHER ==
[~2022-05-11] MED LIST changes: -VEDOLIZUMAB 300 MG in NS 250 ML IV ONE
[2022-05-11 13:52] LABS: HEMATOCRIT 43.8 % (42.0-52.0); HEMOGLOBIN 15.3 g/dl (13.5-17.5); MEAN CORPUSCULAR HEMOGLOBIN 32.6 pg (27.0-33.0); MEAN CORPUSCULAR HGB CONC 34.9 g/dl (32.0-36.5); MEAN CORPUSCULAR VOLUME 93.2 fl (80.0-96.0); PLATELET COUNT, AUTOMATED 219 10^3/uL (150-450); WHITE BLOOD COUNT 3.5 10^3/uL (4.0-10.0)
[2022-05-11 14:36] LABS: HEMOGLOBIN A1c 5.3 %
[2022-05-11 14:51] LABS: ALT/SGPT 197 U/L (12-78); BILIRUBIN,TOTAL 1.1 MG/DL (0.2-1.0); BLOOD UREA NITROGEN 15 MG/DL (7-18); C REACTIVE PROTEIN QUANTITATIV 0.96 MG/DL (0.00-0.30); CARBON DIOXIDE LEVEL 25 MEQ/L (21-32); CHLORIDE LEVEL 107 MEQ/L (98-107); CHOLESTEROL LEVEL 189 MG/DL (<200); CHOLESTEROL RISK RATIO 3.375 (<5); CREATININE FOR GFR 1.02 MG/DL (0.70-1.30); FREE T4 0.94 NG/DL (0.76-1.46); GLOMERULAR FILTRATION RATE > 60.0 (>60); GLUCOSE, FASTING 82 MG/DL (70-100); HDL CHOLESTEROL 56 MG/DL (>40); LDL CHOLESTEROL 116 MG/DL (<100); NON-HDL-C 133 MG/DL; POTASSIUM SERUM 4.1 MEQ/L (3.5-5.1); SODIUM LEVEL 139 MEQ/L (136-145); THYROID STIMULATING HORMONE 0.659 uIU/ML (0.358-3.740); TOTAL PROTEIN 7.7 GM/DL (6.4-8.2); TRIGLYCERIDES LEVEL 83 MG/DL (<150)
[2022-05-11 15:00] LABS: MAU/CREAT RATIO 58.5 MCG/MG (0.0-30.0)
[2022-05-11 15:04] LABS: BASO % 0.9 % (0.0-1.0); EOS # 0.4 10^3/uL (0.0-0.5); EOS % 12.5 % (0.0-3.0); LYMPH # 0.9 10^3/uL (1.5-5.0); LYMPH % 26.7 % (24.0-44.0); MONO # 0.4 10^3/uL (0.0-0.8); MONO % 10.8 % (2.0-8.0); NEUTROPHILS # 1.7 10^3/uL (1.5-8.5)
[2022-05-11 15:22] LABS: VITAMIN B12 LEVEL 333 PG/ML (247-911)
== END ==
LOC: M PLALAB 11:27
PROVIDERS: ATTEND Internal Medicine Hematology
DX: Z00.00 Encounter for general adult medical examination without abnormal findings (principal); D72.818 Other decreased white blood cell count

== ENCOUNTER 2022-07-13 17:00 | Outpatient (CLI) | payer OTHER ==
[~2022-07-13] VITALS: Ht 180.3 cm; Wt 93.4 kg
[~2022-07-13 17:00] MED LIST changes: +VEDOLIZUMAB 300 MG in NS 250 ML IV ONE
[2022-07-13 17:07] VITALS: BP 138/95
[2022-07-13 17:49] VITALS: BP 142/86
== END 2022-07-13 17:55 | disposition home or self-care (01) ==
LOC: M INFU 17:00
PROVIDERS: ATTEND Internal Medicine Gastroenterology
DX: K50.10 Crohn's disease of large intestine without complications (principal)
CPT/HCPCS: 96365; J3380

== ENCOUNTER 2022-09-07 16:55 | Outpatient (CLI) | payer OTHER ==
[~2022-09-07] VITALS: Ht 180.3 cm; Wt 93.4 kg
[~2022-09-07 16:55] MED LIST changes: -VEDOLIZUMAB 300 MG in NS 250 ML IV ONE
[2022-09-07] MEDS ORDERED: VEDOLIZUMAB 300 MG in NS 250 ML IV ONE (17:00)
[2022-09-07 17:11] VITALS: BP 132/74
[2022-09-07 17:57] VITALS: BP 128/68
== END 2022-09-07 18:00 | disposition home or self-care (01) ==
LOC: M INFU 16:55
PROVIDERS: ATTEND Internal Medicine Gastroenterology
DX: K50.90 Crohn's disease, unspecified, without complications (principal)
CPT/HCPCS: 96365; J3380

== ENCOUNTER 2022-11-02 17:00 | Outpatient (CLI) | payer OTHER ==
[~2022-11-02] VITALS: Ht 185.4 cm; Wt 98.4 kg
[~2022-11-02 17:00] MED LIST changes: +VEDOLIZUMAB 300 MG in NS 250 ML IV ONE
[2022-11-02 17:07] VITALS: BP 140/96
[2022-11-02 17:49] VITALS: BP 139/92
== END 2022-11-02 17:55 | disposition home or self-care (01) ==
LOC: M INFU 17:00
PROVIDERS: ATTEND Internal Medicine Gastroenterology
DX: K50.90 Crohn's disease, unspecified, without complications (principal)
CPT/HCPCS: 96365; J3380

== ENCOUNTER 2022-12-28 17:00 | Outpatient (CLI) | payer OTHER ==
[2022-12-28 17:03] VITALS: BP 170/93
[2022-12-28 17:52] VITALS: BP 158/92
== END 2022-12-28 17:55 | disposition home or self-care (01) ==
LOC: M INFU 17:00
PROVIDERS: ATTEND Internal Medicine Gastroenterology
DX: K50.90 Crohn's disease, unspecified, without complications (principal)
CPT/HCPCS: 96365; J3380

== ENCOUNTER 2023-02-22 17:00 | Outpatient (CLI) | payer OTHER ==
[~2023-02-22] VITALS: Ht 185.4 cm; Wt 98.4 kg
[2023-02-22 17:05] VITALS: BP 133/84; TEMP 97.9; O2SAT 98
[2023-02-22 17:44] VITALS: BP 140/89; O2SAT 100
== END 2023-02-22 17:46 ==
LOC: M INFU 17:00
PROVIDERS: ATTEND Internal Medicine Gastroenterology
DX: K50.90 Crohn's disease, unspecified, without complications (principal)
CPT/HCPCS: 96365; J3380

== ENCOUNTER → 2023-04-04 | Outpatient (REF) | payer OTHER ==
[~2023-04-04] MED LIST changes: +ACET325C5 PO; +IBUP80TA PO; -VEDOLIZUMAB 300 MG in NS 250 ML IV ONE
[2023-04-04 17:57] LABS: CREATININE, URINE 188.2 MG/DL; MAU/CREAT RATIO 27.6 MCG/MG (0.0-30.0)
== END ==
LOC: M SFHCPLAZ 16:36
PROVIDERS: ATTEND Internal Medicine Hematology
DX: Z13.220 Encounter for screening for lipoid disorders (principal)

== ENCOUNTER 2023-04-19 16:45 | Outpatient (CLI) | payer OTHER ==
[~2023-04-19] VITALS: Ht 180.3 cm; Wt 98.4 kg
[2023-04-19 16:54] VITALS: BP 147/87; TEMP 98.8; O2SAT 97
[2023-04-19] MEDS ORDERED: VEDOLIZUMAB 300 MG in NS 250 ML IV ONE (18:00)
[2023-04-19 18:05] VITALS: BP 136/74; TEMP 98; O2SAT 98
== END 2023-04-19 18:05 ==
LOC: M INFU 16:45
PROVIDERS: ATTEND Internal Medicine Gastroenterology
DX: K50.90 Crohn's disease, unspecified, without complications (principal)
CPT/HCPCS: 96365; J3380

== ENCOUNTER 2023-06-14 17:01 | Outpatient (CLI) | payer OTHER ==
[~2023-06-14] VITALS: Ht 180.3 cm; Wt 98.0 kg
[2023-06-14 17:05] VITALS: BP 148/78; TEMP 97.8; O2SAT 99
[2023-06-14] MEDS ORDERED: VEDOLIZUMAB 300 MG in NS 250 ML IV ONE (17:30)
[2023-06-14 18:40] VITALS: BP 148/88; O2SAT 98
== END 2023-06-14 18:40 | disposition home or self-care (01) ==
LOC: M INFU 17:01
PROVIDERS: ATTEND Internal Medicine Gastroenterology
DX: K50.90 Crohn's disease, unspecified, without complications (principal)
CPT/HCPCS: 96365; 96366; J3380

== ENCOUNTER 2023-08-09 17:00 | Outpatient (CLI) | payer OTHER ==
[~2023-08-09] VITALS: Ht 180.3 cm; Wt 98.4 kg
[2023-08-09 17:04] VITALS: BP 145/89; TEMP 98.3; O2SAT 97
[2023-08-09] MEDS ORDERED: VEDOLIZUMAB 300 MG in NS 250 ML IV ONE (17:05)
[2023-08-09 17:51] VITALS: BP 148/92; O2SAT 99
== END 2023-08-09 18:00 | disposition home or self-care (01) ==
LOC: M INFU 17:00
PROVIDERS: ATTEND Internal Medicine Gastroenterology
DX: K50.00 Crohn's disease of small intestine without complications (principal)
CPT/HCPCS: 96365; J3380

== ENCOUNTER 2023-10-04 16:57 | Outpatient (CLI) | payer OTHER ==
[~2023-10-04] VITALS: Ht 180.3 cm; Wt 98.0 kg
[2023-10-04 17:19] VITALS: BP 139/75; O2SAT 97
[2023-10-04] MEDS: VEDOLIZUMAB 300 MG in NS 250 ML IV ONE (17:22)
[2023-10-04 17:51] VITALS: BP 139/85; O2SAT 99
== END 2023-10-04 18:00 | disposition home or self-care (01) ==
LOC: M INFU 16:57
PROVIDERS: ATTEND Internal Medicine Gastroenterology
DX: K50.90 Crohn's disease, unspecified, without complications (principal)
CPT/HCPCS: 96365; J3380

== ENCOUNTER 2023-12-06 16:30 | Outpatient (CLI) | payer OTHER ==
[~2023-12-06] VITALS: Ht 180.3 cm; Wt 100.0 kg
[2023-12-06 16:15] VITALS: BP 139/88; O2SAT 97
[2023-12-06] MEDS: VEDOLIZUMAB 300 MG in NS 250 ML IV ONE (16:44)
[2023-12-06 17:25] VITALS: BP 144/87; O2SAT 99
== END 2023-12-06 17:00 ==
LOC: M INFU 16:30
PROVIDERS: ATTEND Internal Medicine Gastroenterology
DX: K50.919 Crohn's disease, unspecified, with unspecified complications (principal)
CPT/HCPCS: 96365; J3380

== ENCOUNTER 2024-01-29 16:13 | Outpatient (CLI) | payer OTHER ==
[~2024-01-29] VITALS: Ht 180.3 cm; Wt 100.0 kg
[2024-01-29] MEDS: VEDOLIZUMAB 300 MG in NS 250 ML IV ONE (16:36)
[2024-01-29 16:44] VITALS: BP 148/58; O2SAT 99
[2024-01-29 16:57] LABS: BASO # 0.1 10^3/uL (0.0-0.2); EOS # 0.3 10^3/uL (0.0-0.5); EOS % 6.4 % (0.0-3.0); HEMATOCRIT 42.2 % (42.0-52.0); HEMOGLOBIN 14.7 g/dl (13.5-17.5); LYMPH % 19.8 % (24.0-44.0); MEAN CORPUSCULAR HEMOGLOBIN 33.9 pg (27.0-33.0); MEAN CORPUSCULAR HGB CONC 34.8 g/dl (32.0-36.5); MEAN CORPUSCULAR VOLUME 97.5 fl (80.0-96.0); MONO # 0.4 10^3/uL (0.0-0.8); MONO % 7.4 % (2.0-8.0); NEUTROPHILS # 3.3 10^3/uL (1.5-8.5); PLATELET COUNT, AUTOMATED 205 10^3/uL (150-450); RED BLOOD COUNT 4.33 10^6/uL (4.30-6.10)
[2024-01-29 17:12] VITALS: BP 123/78; O2SAT 97
[2024-01-29 17:22] LABS: ALBUMIN 4.1 G/DL (3.2-5.2); ALKALINE PHOSPHATASE 78 U/L (46-116); ALT/SGPT 167 U/L (7.0-40); AST/SGOT 117 U/L (<34); BILIRUBIN,TOTAL 1.7 MG/DL (0.3-1.2); BLOOD UREA NITROGEN 19 MG/DL (9-23); CALCIUM LEVEL 10.1 MG/DL (8.5-10.1); CARBON DIOXIDE LEVEL 28 MMOL/L (20-31); CHLORIDE LEVEL 105 MMOL/L (98-107); CREATININE FOR GFR 1.02 MG/DL (0.70-1.30); GLOMERULAR FILTRATION RATE > 60.0 (>60); GLUCOSE, FASTING 120 MG/DL (60-100); POTASSIUM SERUM 3.8 MMOL/L (3.5-5.1); SODIUM LEVEL 140 MMOL/L (136-145); TOTAL PROTEIN 7.6 G/DL (5.7-8.2)
[2024-01-29 17:24] LABS: VITAMIN B12 LEVEL 316 PG/ML (211-911)
[2024-01-29 17:28] LABS: FOLATE 11.3 NG/ML (>5.4)
== END 2024-01-29 17:10 | disposition home or self-care (01) ==
LOC: M INFU 16:13
PROVIDERS: ATTEND Internal Medicine Gastroenterology
DX: K50.00 Crohn's disease of small intestine without complications (principal)
CPT/HCPCS: 36592; 80053; 82607; 82746; 82977; 85025; 96413; J3380

== ENCOUNTER → 2024-02-20 | Outpatient (CLI) | payer OTHER ==
[2024-02-20 07:27] LABS: INR 1.05; PROTHROMBIN TIME 13.4 SECONDS (12.5-14.5)
[2024-02-20 07:47] LABS: ALBUMIN 4.5 G/DL (3.2-5.2); ALKALINE PHOSPHATASE 89 U/L (46-116); ALT/SGPT 269 U/L (7.0-40); AST/SGOT 226 U/L (<34); BILIRUBIN,DIRECT 0.5 MG/DL (<0.4); BILIRUBIN,TOTAL 1.6 MG/DL (0.3-1.2); IMMUNOGLOBULIN A 443.7 MG/DL (40-350); IRON (FE) 121 UG/DL (65-175); PERCENT SATURATION 33.5 % (19.7-50.0); TOTAL IRON BINDING CAPACITY 361 UG/DL (250-425); TOTAL PROTEIN 8.3 G/DL (5.7-8.2)
[2024-02-20 08:07] LABS: HEPATITIS B SURFACE ANTIGEN NEGATIVE (NEGATIVE)
[2024-02-20 08:27] LABS: HEPATITIS B CORE ANTIBODY IGM NEGATIVE (NEGATIVE)
[2024-02-20 08:28] LABS: HEPATITIS C VIRUS ABY INDEX < 0.02 INDEX (<0.8)
[2024-02-21 14:43] LABS: TISSUE TRANSGLUTAMINASE IgA < 1.0 U/mL (<15.0)
[2024-02-21 19:13] LABS: ANTI-MITOCHONDRIAL ANTIBODY NEGATIVE (NEGATIVE)
== END ==
LOC: M RAD 06:36
PROVIDERS: ATTEND Internal Medicine Gastroenterology
DX: R74.01 Elevation of levels of liver transaminase levels (principal); K74.3 Primary biliary cirrhosis; K50.00 Crohn's disease of small intestine without complications

== ENCOUNTER 2024-03-25 16:25 | Outpatient (CLI) | payer OTHER ==
[~2024-03-25] VITALS: Ht 180.3 cm; Wt 100.0 kg
[2024-03-25 16:25] VITALS: BP 134/88; O2SAT 98
[2024-03-25] MEDS: VEDOLIZUMAB 300 MG in NS 250 ML IV ONE (16:40)
[2024-03-25 17:17] VITALS: BP 135/88; O2SAT 100
== END 2024-03-25 17:20 ==
LOC: M INFU 16:25
PROVIDERS: ATTEND Internal Medicine Gastroenterology
DX: K50.90 Crohn's disease, unspecified, without complications (principal)
CPT/HCPCS: 96413; J3380

== ENCOUNTER → 2024-03-26 | Outpatient (CLI) | payer OTHER ==
[2024-03-26 12:34] LABS: ALBUMIN 4.3 G/DL (3.2-5.2); ALKALINE PHOSPHATASE 83 U/L (46-116); ALT/SGPT 211 U/L (7.0-40); AST/SGOT 228 U/L (<34); BILIRUBIN,DIRECT 0.5 MG/DL (<0.4); BILIRUBIN,TOTAL 1.4 MG/DL (0.3-1.2); TOTAL PROTEIN 7.9 G/DL (5.7-8.2)
[2024-03-26 12:54] LABS: HEPATITIS B SURFACE ANTIGEN NEGATIVE (NEGATIVE)
== END ==
LOC: M LRY 09:46
PROVIDERS: ATTEND Internal Medicine Gastroenterology
DX: K50.018 Crohn's disease of small intestine with other complication (principal)

== ENCOUNTER → 2024-12-03 | Outpatient (CLI) | payer MEDICAID, OTHER | LOC: M OUTALCOH 12:39 | PROVIDERS: ATTEND Psychiatry & Neurology Psychiatry | DX: Z03.89 Encounter for observation for other suspected diseases and conditions ruled out (principal) ==

== ENCOUNTER → 2025-06-11 | Outpatient (CLI) | payer OTHER ==
[2025-06-21 13:21] LABS: BASO # 0.0 10^3/uL (0.0-0.2); BASO % 0.4 % (0.0-1.0); EOS # 0.2 10^3/uL (0.0-0.5); EOS % 4.4 % (0.0-3.0); LYMPH # 1.7 10^3/uL (1.5-5.0); LYMPH % 32.4 % (24.0-44.0); MONO # 0.4 10^3/uL (0.0-0.8); MONO % 7.4 % (2.0-8.0); NEUTROPHILS # 2.9 10^3/uL (1.5-8.5); NEUTROPHILS % 55.2 % (36.0-66.0); PLATELET COUNT, AUTOMATED 266 10^3/uL (150-450)
[2025-06-21 13:51] LABS: ALT/SGPT 370.0 U/L (7.0-40); AST/SGOT 317.0 U/L (<34)
[2025-06-21 13:54] LABS: VITAMIN B12 LEVEL 566.0 PG/ML (211-911)
== END ==
LOC: M LAB 16:50
PROVIDERS: ATTEND Internal Medicine Gastroenterology
DX: Z53.9 Procedure and treatment not carried out, unspecified reason (principal)

== ENCOUNTER → 2025-07-07 | Outpatient (CLI) | payer OTHER | LOC: M LAB 13:35 | PROVIDERS: ATTEND Internal Medicine Gastroenterology | DX: K50.00 Crohn's disease of small intestine without complications (principal) ==

== ENCOUNTER → 2025-08-06 | Outpatient (CLI) | payer OTHER ==
[2025-08-06 07:42] VITALS: TEMP 98.9
[2025-08-06 07:54] LABS: PLATELET COUNT, AUTOMATED 224 10^3/uL (150-450)
[2025-08-06 07:58] LABS: BASO # 0.0 10^3/uL (0.0-0.2); BASO % 0.7 % (0.0-1.0); EOS # 0.2 10^3/uL (0.0-0.5); EOS % 2.7 % (0.0-3.0); LYMPH # 1.2 10^3/uL (1.5-5.0); LYMPH % 21.5 % (24.0-44.0); MONO # 0.6 10^3/uL (0.0-0.8); MONO % 10.5 % (2.0-8.0); NEUTROPHILS # 3.6 10^3/uL (1.5-8.5); NEUTROPHILS % 64.2 % (36.0-66.0); PLATELET COUNT, AUTOMATED 218 10^3/uL (150-450)
[2025-08-06 08:12] LABS: CALCIUM LEVEL 9.3 MG/DL (8.5-10.1); CARBON DIOXIDE LEVEL 25 MMOL/L (20-31); CHLORIDE LEVEL 104 MMOL/L (98-107); CREATININE FOR GFR 0.82 MG/DL (0.70-1.30); GLOMERULAR FILTRATION RATE > 90.0 (>60); POTASSIUM SERUM 3.7 MMOL/L (3.5-5.1); SODIUM LEVEL 142 MMOL/L (136-145)
[2025-08-06 08:15] LABS: INR 1.01
[2025-08-06 08:28] LABS: IRON (FE) 97 UG/DL (65-175); PERCENT SATURATION 31.5 % (19.7-50.0)
[2025-08-06 08:29] LABS: ALT/SGPT 204 U/L (7.0-40); AST/SGOT 159 U/L (<34)
[2025-08-06 08:31] LABS: INR 1.04
[2025-08-06] MEDS: LIDOCAINE 1% MDV 20 ML VIAL SC ONE (08:53)
[2025-08-06] MEDS: ACETAMINOPHEN 325 MG TAB PO ONE (08:54)
[2025-08-06 09:02] LABS: HEPATITIS C VIRUS ABY INDEX < 0.02 INDEX (<0.8)
[2025-08-06 10:30] VITALS: BP 154/88; O2SAT 100
[2025-08-10 11:41] LABS: CERULOPLASMIN 28.0 mg/dL (14-30)
[2025-08-11 00:31] LABS: ANTI-SMOOTH MUSCLE ANTIBODY < 20 U (<20); LIVER-KIDNEY MICROSOMAL ABY <= 20.0 U (<=20.0)
== END ==
LOC: M IRPRO 07:15
PROVIDERS: ATTEND Internal Medicine Gastroenterology
DX: R74.01 Elevation of levels of liver transaminase levels (principal); K76.0 Fatty (change of) liver, not elsewhere classified